=== PATIENT | female | born 1960 ===

== ENCOUNTER 2020-11-24 07:08 | Emergency (ER) | payer OTHER ==
[~2020-11-24] VITALS: Ht 147.3 cm; Wt 87.3 kg
[2020-11-24 07:16] VITALS: BP 138/72
[2020-11-24] MEDS ORDERED: HYDR-3965 PO (07:37)
[2020-11-24] MEDS ORDERED: AMOX500C2 PO (07:37)
== END 2020-11-24 07:46 | disposition home or self-care (01) ==
LOC: ER 07:09
DX: K08.89 Other specified disorders of teeth and supporting structures (principal); Z79.899 Other long term (current) drug therapy
CPT/HCPCS: 99283